=== PATIENT | female | born 1985 | race Hispanic/Latino ===

== ENCOUNTER 2024-04-01 15:32 | Inpatient (IN) | payer OTHER ==
[~2024-04-01] VITALS: Ht 152.4 cm; Wt 88.5 kg
[2024-04-01] MEDS ORDERED: TRANEXAMIC ACID 1000MG/10ML ONE (16:50)
[2024-04-01 16:55] LABS: AMPHET/METH SCREEN,URINE NEGATIVE (NEGATIVE); BARBITURATE SCREEN, URINE NEGATIVE (NEGATIVE); BENZODIAZEPINES SCREEN,URINE NEGATIVE (NEGATIVE); CANNABINOID SCREEN,URINE NEGATIVE (NEGATIVE); COCAINE SCREEN,URINE NEGATIVE (NEGATIVE); OPIATE SCREEN,URINE NEGATIVE (NEGATIVE); PHENCYCLIDINE SCREEN,URINE NEGATIVE (NEGATIVE)
[2024-04-01] MEDS ORDERED: LIDOCAINE PF 100MG/5ML (2%) SYRINGE 5ML ONE (16:57)
[2024-04-01] MEDS ORDERED: KETAMINE HCL 100 MG/ML 5ML VIAL IJ ONE (16:57)
[2024-04-01] MEDS ORDERED: PROPOFOL 10 MG/ML 20ML VIAL IV ONE (16:57)
[2024-04-01] MEDS ORDERED: SUCCINYLCHOLINE CHLORIDE 20 MG/ML 10 ML VIAL ONE (16:57)
[2024-04-01] MEDS ORDERED: LACTATED RINGERS 1000ML 1,000 ML IV SCH (17:00)
[2024-04-01 17:06] LABS: HEMATOCRIT 41.7 % (36-48); MEAN CORPUSCULAR HEMOGLOBIN 29.5 pg (27.0-33.0); MEAN CORPUSCULAR HGB CONC 32.9 g/dL (32.0-36.0); MEAN CORPUSCULAR VOLUME 89.9 fL (79-99); RED BLOOD CELL COUNT(AUTO) 4.64 MIL/uL (4.00-5.50); RED CELL DISTRIBUTION WIDTH 14.3 % (11.0-15.5); WHITE BLOOD COUNT (AUTO) 9.9 K/uL (4.8-10.8)
[2024-04-01] MEDS ORDERED: CLINDAMYCIN IVPB 900MG/50ML 50 ML IV ONE (17:15)
[2024-04-01] MEDS ORDERED: CEFAZOLIN SODIUM 1 GM VIAL ONE (17:17)
[2024-04-01] MEDS ORDERED: OXYTOCIN 10 UNIT/1ML 10ML VIAL ONE (17:17)
[2024-04-01] MEDS ORDERED: DEXAMETHASONE SOD PHOSPHATE 10MG/ML 1ML VIAL ONE (17:22)
[2024-04-01] MEDS ORDERED: ONDANSETRON 4MG INJ ONE (17:22)
[2024-04-01] MEDS ORDERED: FENTANYL CITRATE PF 50 MCG/1 ML 2ML VIAL ONE (17:26)
[2024-04-01] MEDS ORDERED: GENTAMICIN SULFATE 240 MG in 0.9%NACL 100ML 100 ML IV SCH (17:30)
[2024-04-01 17:55] LABS: HIV 1&2 ANTIBODY Non-Reactive (Negative)
[2024-04-01 17:56] LABS: HIV-1 p24 Antigen Non-Reactive (Negative)
[2024-04-01 17:58] LABS: SARS-CoV-2, RNA, NAAT NEGATIVE SARS CoV-2 (NEGATIVE)
[2024-04-01] MEDS ORDERED: ACETAMINOPHEN 500 MG TABLET PO PRN (18:00)
[2024-04-01] MEDS ORDERED: MEPERIDINE-PF 75 MG/ML SYG IM PRN (18:00)
[2024-04-01] MEDS ORDERED: 0.9%NACL 10ML VIAL IVP PRN (18:00)
[2024-04-01] MEDS ORDERED: LANOLIN 30GM OINTMENT TP PRN (18:00)
[2024-04-01] MEDS ORDERED: OXYTOCIN-LR 30 UNITS/500ML 500 ML IV PRN (18:00)
[2024-04-01] MEDS ORDERED: PROMETHAZINE HCL 25 MG/ML 1ML AMPULE IM PRN (18:00)
[2024-04-01] MEDS ORDERED: BISACODYL 10 MG SUPP.RECT RC PRN (18:00)
[2024-04-01 19:43] LABS: ADD UA MICROSCOPIC YES; APPEARANCE,URINE CLOUDY (CLEAR); BILIRUBIN,URINE NEGATIVE (NEGATIVE); COLOR,URINE YELLOW (YELLOW); GLUCOSE, URINE (UA) NEGATIVE (NEGATIVE); KETONES,URINE 20 mg/dL (NEGATIVE); LEUKOCYTE ESTERASE ,URINE NEGATIVE Leu/uL (NEGATIVE); NITRATE,URINE NEGATIVE (NEGATIVE); PROTEIN,URINE 200 mg/dL (NEGATIVE)
[2024-04-01 19:45] LABS: BACTERIA,URINE RARE /HPF (None Seen); MUCUS,URINE FEW LPF (None Seen); SQUAMOUS EPITHELIAL CELL,UR FEW /HPF (0-2)
[2024-04-01] MEDS: DEXTROSE 5 %-0.45 % NACL 1,000 ML IV PRN (20:59)
[2024-04-01 22:10] VITALS: BP 122/58; PULSE 71; RESP 18
[2024-04-02] MEDS: CALDOLOR 800MG+NS 250ML 250 ML IV SCH (01:56)
[2024-04-02 04:00] VITALS: BP 100/62; PULSE 68; RESP 18
[2024-04-02 07:10] LABS: HEMATOCRIT 30.3 % (36-48); MEAN CORPUSCULAR HEMOGLOBIN 29.7 pg (27.0-33.0); MEAN CORPUSCULAR HGB CONC 33.7 g/dL (32.0-36.0); MEAN CORPUSCULAR VOLUME 88.3 fL (79-99); RED BLOOD CELL COUNT(AUTO) 3.43 MIL/uL (4.00-5.50); RED CELL DISTRIBUTION WIDTH 14.3 % (11.0-15.5); WHITE BLOOD COUNT (AUTO) 12.9 K/uL (4.8-10.8)
[2024-04-02 08:15] VITALS: BP 106/62; PULSE 64; RESP 18
[2024-04-02] MEDS: DOCUSATE SODIUM 100 MG CAP PO SCH (09:43)
[2024-04-02] MEDS: SIMETHICONE 80 MG TAB.CHEW PO PRN (09:44)
[2024-04-02] MEDS: HYDROCODONE/ACETAMINOPHEN 5/325 MG TAB PO PRN (09:44)
[2024-04-02 10:55] LABS: RAPID PLASMA REAGIN NONREACTIVE (NONREACTIVE)
[2024-04-02 11:35] VITALS: BP 100/61; PULSE 63; RESP 18
[2024-04-02 16:52] VITALS: BP 112/73; PULSE 79
[2024-04-02] MEDS: ACETAMINOPHEN WITH CODEINE 1 TAB TAB PO PRN (17:10)
[2024-04-02] MEDS: IBUPROFEN 600 MG TABLET PO PRN (17:11)
[2024-04-02 19:12] VITALS: BP 97/57; PULSE 69; RESP 18
[2024-04-03 00:03] VITALS: BP 98/55; PULSE 67; RESP 18
[2024-04-03 04:00] VITALS: BP 96/49; PULSE 67; RESP 18
[2024-04-03 07:30] VITALS: BP 106/70; PULSE 80; RESP 20
[2024-04-03 11:50] VITALS: BP 110/73; PULSE 88; RESP 20
[2024-04-03 15:57] VITALS: BP 106/68; PULSE 77; RESP 18
== END 2024-04-03 18:40 | disposition home or self-care (01) | DRG 788 ==
LOC: EDH 15:32 → EDBD 15:32 → LDH 15:53 → OBSVTOIN 15:53 → WSH 22:09
PROVIDERS: ADMIT Obstetrics & Gynecology; ATTEND Obstetrics & Gynecology
PROC: 10D00Z1 Extraction of Products of Conception, Low, Open Approach (ICD-10-PCS; principal; 2024-04-01 16:50)
DX: O76 Abnormality in fetal heart rate and rhythm complicating labor and delivery (principal); O34.211 Maternal care for low transverse scar from previous cesarean delivery; O48.0 Post-term pregnancy; Z3A.41 41 weeks gestation of pregnancy; Z37.0 Single live birth
CPT/HCPCS: 36415; 59510; 80305; 81001; 85027; 86592; 86701; 86850; 86900; 86901; 86923; 87088; 87340; 87390; 87635; A4344; G0378; J0330; J0690; J1100; J1580; J1741; J2001; J2175; J2405; J2550; J2590; J2704; J3010; J3490; J7120; A4248